=== PATIENT | male | born 1950 | race African-American/Black ===

== ENCOUNTER 2024-01-03 12:33 | Inpatient (IN) | payer MEDICARE, OTHER ==
[~2024-01-03] VITALS: Ht 182.9 cm; Wt 133.4 kg
[2024-01-03] MEDS ORDERED: MORPHINE SULFATE INJ 2 MG/ML DISP.SYRIN IV PRN (15:30)
[2024-01-03] MEDS ORDERED: DEXTROSE 50%-WATER 50 ML DISP.SYRIN IV PRN (15:30)
[2024-01-03] MEDS ORDERED: ONDANSETRON HCL/PF 4 MG/2 ML VIAL IVP PRN (15:30)
[2024-01-03] MEDS ORDERED: hydrALAZINE HCL IV 20 MG VIAL IV PRN (15:30)
[2024-01-03] MEDS ORDERED: ACETAMINOPHEN 325 MG TABLET PO PRN (15:30)
[2024-01-03 16:00] VITALS: BP 139/66; TEMP 97.3; O2SAT 93
[2024-01-03] MEDS: BLOOD SUGAR DIAGNOSTIC 1 EACH STRIP IN SCH (16:54)
[2024-01-03] MEDS ORDERED: FOLI0.8T3 PO (17:36)
[2024-01-03] MEDS ORDERED: QUET50TA PO (17:36)
[2024-01-03] MEDS ORDERED: FINA5TAB11 PO (17:36)
[2024-01-03] MEDS ORDERED: ATOR80TA PO (17:36)
[2024-01-03] MEDS ORDERED: MAGN400O6 PO (17:36)
[2024-01-03] MEDS ORDERED: ACET325T53 PO (17:36)
[2024-01-03] MEDS ORDERED: BISA5TAB10 PO (17:36)
[2024-01-03] MEDS ORDERED: GABA-532 PO (17:36)
[2024-01-03] MEDS ORDERED: BISA10SU11 RC (17:36)
[2024-01-03] MEDS ORDERED: IBUP-1955 PO (17:36)
[2024-01-03] MEDS ORDERED: TAMS-12 PO (17:36)
[2024-01-03] MEDS ORDERED: CHOL100040 PO (17:36)
[2024-01-03] MEDS ORDERED: ACET-73 PO (17:36)
[2024-01-03] MEDS ORDERED: APIX5TAB PO (17:36)
[2024-01-03] MEDS ORDERED: TRAZ-182 PO (17:36)
[2024-01-03] MEDS ORDERED: SOTA80TA PO (17:36)
[2024-01-03] MEDS ORDERED: ALBU6.7H9 IH (17:36)
[2024-01-03] MEDS ORDERED: DAPA5TAB PO (17:36)
[2024-01-03] MEDS ORDERED: TRAZODONE 50 MG TABLET PO PRN (19:00)
[2024-01-03] MEDS ORDERED: ALBUTEROL FS 2.5 MG/0.5 ML VIAL.NEB NEB PRN (19:30)
[2024-01-03 20:00] VITALS: BP 131/56; TEMP 98.2; O2SAT 96
[2024-01-03] MEDS: HEPARIN SODIUM, PORCINE 5000 UNITS/1 ML VIAL SQ SCH (21:00)
[2024-01-03] MEDS: ATORVASTATIN 40 MG TABLET PO SCH (22:28)
[2024-01-03] MEDS: QUETIAPINE FUMARATE 25 MG TABLET PO SCH (22:28)
[2024-01-03] MEDS: SOTALOL HCL 80 MG TABLET PO SCH (22:28)
[2024-01-03] MEDS: INSULIN REGULAR, HUMAN 100 UNIT/ML 3 ML VIAL SQ PRN (22:44)
[2024-01-04] VITALS: BP 124/74; TEMP 99; O2SAT 94
[2024-01-04 04:00] VITALS: BP 111/68; TEMP 98.6; O2SAT 95
[2024-01-04 06:54] LABS: BASOPHILS % (AUTO) 0.2 % (0.0-2.0); EOSINOPHILS % (AUTO) 0.7 % (0.0-6.0); HEMATOCRIT 40 % (39-51); HEMOGLOBIN 13.6 g/dL (13.5-17.5); LYMPHOCYTES # (AUTO) 1.1 K/uL (0.8-4.8); LYMPHOCYTES % (AUTO) 17.7 % (20.0-44.0); MEAN CORPUSCULAR HEMOGLOBIN 35 PG (26.0-33.0); MEAN CORPUSCULAR HGB CONC 34 g/dl (31.0-36.0); MEAN CORPUSCULAR VOLUME 101 fL (80-96); MONOCYTES # (AUTO) 0.6 K/uL (0.1-1.30); MONOCYTES % (AUTO) 9.7 % (2.0-12.0); NEUTROPHILS # (AUTO) 4.4 K/uL (1.8-8.9); NEUTROPHILS % (AUTO) 71.7 % (43.0-81.0); PLATELET COUNT (AUTO) 64 K/uL (150-450); RED BLOOD CELL COUNT(AUTO) 3.95 MIL/uL (4.5-6.0); RED CELL DISTRIBUTION WIDTH 16.4 % (11.5-15.0); WHITE BLOOD COUNT (AUTO) 6.2 K/uL (4.3-11.0)
[2024-01-04 08:00] VITALS: BP 95/46; TEMP 98.8; O2SAT 94
[2024-01-04 09:11] LABS: LYMPHOCYTES % (MANUAL) 14 % (16-48); MONOCYTES % (MANUAL) 10 % (0-11.0); NEUTROPHILS % (MANUAL) 76 (42-76)
[2024-01-04 09:13] LABS: ANISOCYTOSIS 1+; OVALOCYTES 1+; PLATELET ESTIMATE DECREASED
[2024-01-04] MEDS: FINASTERIDE (5 MG) 5 MG TABLET PO SCH (09:49)
[2024-01-04] MEDS: GABAPENTIN 100 MG CAPSULE PO SCH (09:49)
[2024-01-04] MEDS: DAPAGLIFLOZIN PROPANEDIOL 5 MG TABLET PO SCH (09:49)
[2024-01-04] MEDS: METOPROLOL TARTRATE INJ 5 MG/5 ML AMPUL IVP PRN (11:20)
[2024-01-04] MEDS ORDERED: IOHEXOL-350 100 ML VIAL IV ONE (11:21)
[2024-01-04] MEDS ORDERED: CT SWABBABLE VALVE TRANS SET 1 EA INFUS.SET MC ONE (11:21)
[2024-01-04] MEDS ORDERED: IV NS 0.9% 250 ML IV ONE (11:21)
[2024-01-04] MEDS: NITROGLYCERIN 0.4 MG/TAB BOTTLE SL ONE (11:39)
[2024-01-04 12:00] VITALS: BP 96/63; TEMP 98.8; O2SAT 94
[2024-01-04 12:47] LABS: THYROID STIMULATING HORMONE 0.27 uIU/mL (0.358-3.74)
[2024-01-04 13:45] LABS: CALCIUM, SERUM 8.5 mg/dL (8.5-10.1); CARBON DIOXIDE 23 mmol/L (21-32); CHLORIDE 103 mmol/L (98-107); GLUCOSE 117 mg/dL (74-106); POTASSIUM 3.7 mmol/L (3.5-5.1); SODIUM SERUM 141 mmol/L (136-145); UREA NITROGEN, BLOOD 8 mg/dL (7-18)
[2024-01-04 13:52] LABS: ALANINE AMINOTRANSFERASE < 6 U/L (12-78); ALKALINE PHOSPHATASE 99 U/L (46-116); ASPARTATE AMINOTRANSFERASE 51 U/L (15-37); BILIRUBIN,TOTAL 2.1 mg/dL (0.2-1.0); PHOSPHORUS 3.1 mg/dL (2.5-4.9)
[2024-01-04 14:58] LABS: ALBUMIN < 0.6 g/dL (3.4-5.0)
[2024-01-04 14:59] LABS: MAGNESIUM 0.1 mg/dL (1.8-2.4)
[2024-01-04] MEDS: Magnesium 1GM/D5W 100ML PREMIX 100 ML IV SCH (15:32)
[2024-01-04 16:00] VITALS: BP 105/61; TEMP 98.2; O2SAT 94
[2024-01-04] MEDS: APIXABAN 5 MG TABLET PO SCH (17:34)
[2024-01-04] MEDS: TAMSULOSIN 0.4 MG CAP.SR.24H PO SCH (17:34)
[2024-01-04 20:00] VITALS: BP 102/59; TEMP 98.2; O2SAT 94
[2024-01-05] VITALS: BP 126/72; TEMP 97.7; O2SAT 94
[2024-01-05 08:00] VITALS: BP 117/66; TEMP 97.9; O2SAT 90
[2024-01-05 12:00] VITALS: BP 92/47; TEMP 98.4; O2SAT 98
[2024-01-05 16:00] VITALS: BP 115/72; TEMP 98.2; O2SAT 92
[2024-01-05 22:31] VITALS: BP 113/67; TEMP 98.8; O2SAT 93
[2024-01-06 07:00] VITALS: BP 123/75; TEMP 98.2; O2SAT 94
[2024-01-06 19:52] VITALS: BP 140/77; TEMP 98.4; O2SAT 93
[2024-01-06 20:00] VITALS: BP 140/77; TEMP 98.4; O2SAT 93
[2024-01-07 08:31] VITALS: BP 113/74
== END 2024-01-07 12:23 | DRG 311 ==
LOC: TELE 14:08 → MED 01-05 17:49
PROVIDERS: ADMIT Internal Medicine; ATTEND Internal Medicine
DX: I20.0 Unstable angina (principal); E66.01 Morbid (severe) obesity due to excess calories; E11.65 Type 2 diabetes mellitus with hyperglycemia; I48.91 Unspecified atrial fibrillation; N40.0 Benign prostatic hyperplasia without lower urinary tract symptoms; E78.5 Hyperlipidemia, unspecified; Z79.01 Long term (current) use of anticoagulants
CPT/HCPCS: 36415; 75574; 76536-TC; 80053-TC; 80061-TC; 82962-TC; 83735-TC; 84100-TC; 84439-TC; 84443-TC; 84484-TC; 85025-TC; 93307-TC; 97110-TC; 97530-TC; A4223; G0378; J1815; J3475; J3490; J7050; Q9967